=== PATIENT | male | born 1950 | race Caucasian/White ===

== ENCOUNTER 2021-01-08 17:55 | Emergency (ER) | payer MEDICARE, OTHER ==
[~2021-01-08 17:55] MED LIST: BACTRIM DS TAB1 EACH PO; Voltaren Gel 1 % TOP
[2021-01-08 19:09] LABS: HEMOGLOBIN 14.8 gm/dl (14.0-17.5); RED BLOOD COUNT 5.03 M/UL (4.20-5.50); WHITE BLOOD COUNT 7.3 K/UL (4.5-11.0)
[2021-01-08 19:24] LABS: BUN/CREATININE RATIO 25 (0-10)
== END 2021-01-08 23:53 | disposition home or self-care (01) ==
LOC: ER1 17:55
PROVIDERS: Physician Assistant
DX: R13.10 Dysphagia, unspecified (principal); R22.1 Localized swelling, mass and lump, neck; F17.210 Nicotine dependence, cigarettes, uncomplicated; I10 Essential (primary) hypertension; Z20.822 Contact with and (suspected) exposure to COVID-19
CPT/HCPCS: 70491; 80053; 83605; 85025; 85652; 86140; 96374; 96375; 99284; J1885; J2270; J2405; Q9967; U0002

== ENCOUNTER 2021-01-16 09:07 | Emergency (ER) | payer MEDICARE, OTHER | END 2021-01-16 10:46 | disposition home or self-care (01) | LOC: ER1 09:07 | DX: R22.1 Localized swelling, mass and lump, neck (principal); G89.29 Other chronic pain; K21.9 Gastro-esophageal reflux disease without esophagitis; I10 Essential (primary) hypertension; F17.200 Nicotine dependence, unspecified, uncomplicated | CPT/HCPCS: 99283 ==